=== PATIENT | male | born 1955 | race Caucasian/White ===

== ENCOUNTER 2018-12-17 08:34 | Emergency (ER) | payer SELFPAY ==
[~2018-12-17] VITALS: Ht 175.3 cm; Wt 71.4 kg
[~2018-12-17 08:34] MED LIST: DICL100G37 TOP; GABA300C16 PO; HYDR-3720 PO
[2018-12-17 08:36] VITALS: BP 103/66; PULSE 106; RESP 20; Ht 175.3 cm; Wt 71.4 kg
--- NOTE | 2018-12-17 09:20 | ERD ---
ER Documentation Chief Complaint Chief Complaint right arm and shoulder pain, bilateral leg pain and sore throat x 2 months HPI Patient is a 63 years old male w/ PMHx of DM II presenting to the ED for right shoulder pain w/ tingling sensation x 1 month. Patient reports similar symptoms on bilateral lower extremity with associated numbness and tingling. Patient denies taking any OTC medication. Patient admits to taking Metformin. Patient reports seeing his PCP 6 years ago. Denies trauma. Patient denies throat pain stating that his symptoms of tingling sensation are generally through out his body. ROS All systems reviewed and are negative except as per history of present illness. Medications Home Meds Active Scripts Diclofenac Sodium* (Voltaren* Gel) 1% -100 Gm Gel, 2 GM TOP QID, #1 TUB Prov:ELVIE BARDALES PA-C 12/17/18 Gabapentin* (Gabapentin*) 300 Mg Capsule, 300 MG PO BID, #60 CAP Prov:ELVIE BARDALES PA-C 12/17/18 Hydrocodone Bit-Acetaminophen* (Mullens*) 7.5-325 Tablet, 1 TAB PO Q4H PRN for PAIN, #20 TAB Prov:RUBI BOLANOS DO 12/23/15 Allergies Allergies: Coded Allergies: No Known Allergy (Unverified , 12/17/18) PMhx/Soc Medical and Surgical Hx: pt denies Surgical Hx History of Surgery: No Anesthesia Reaction: No Hx Neurological Disorder: No Hx Respiratory Disorders: No Hx Cardiac Disorders: No Hx Psychiatric Problems: No Hx Miscellaneous Medical Probl: No Hx Alcohol Use: No Hx Substance Use: No Hx Tobacco Use: Yes Smoking Status: Current every day smoker FmHx Family History: No diabetes, No coronary disease, No other Physical Exam Vitals Vital Signs Date Temp Pulse Resp B/P (MAP) Pulse Ox O2 O2 Flow FiO2 Time Delivery Rate 12/17/18 97.6 106 20 103/66 99 08:36 (78) Physical Exam Const: No acute distress Head: Atraumatic ENT: Normal External Ears, Nose and Mouth. Normal TM bilaterally. Neck: Full range of motion. No meningismus. Resp: Clear to auscultation bilaterally Cardio: Regular rate and rhythm, no murmurs Abd: Soft, non tender, non distended. Normal bowel sounds Neur: Awake and alert. Sensation intact on bilateral lower and upper extremity. Psych: Normal Mood and Affect MSK: Limited range on motion of right shoulder due to pain. No tenderness to palpation of right shoulder/arm without any signs of laceration, deformity, ecchymoses. Result Diagram: 12/17/1892612/17/18926 Results 24 hrs Laboratory Tests Test 12/17/18 09:27 12/17/18 09:28 12/17/18 10:59 12/17/18 11:21 White Blood Count 8.0 10^3/ul Red Blood Count 4.65 10^6/ul Hemoglobin 14.1 g/dl Hematocrit 41.4 % Mean Corpuscular 89.0 fl Volume Mean Corpuscular 30.3 pg Hemoglobin Mean Corpuscular 34.1 g/dl Hemoglobin Concen t Red Cell 12.0 % Distribution Width Platelet Count 204 10^3/UL Mean Platelet 9.7 fl Volume Immature 0.500 % Granulocytes % Neutrophils % 75.5 % Lymphocytes % 16.3 % Monocytes % 6.3 % Eosinophils % 1.0 % Basophils % 0.4 % Nucleated Red 0.0 /100WBC Blood Cells % Immature 0.040 10^3/ul Granulocytes # Neutrophils # 6.1 10^3/ul Lymphocytes # 1.3 10^3/ul Monocytes # 0.5 10^3/ul Eosinophils # 0.1 10^3/ul Basophils # 0.0 10^3/ul Nucleated Red 0.0 10^3/ul Blood Cells # Sodium Level 138 mmol/L Potassium Level 4.6 mmol/L Chloride Level 101 mmol/L Carbon Dioxide 25 mmol/L Level Anion Gap 12 Blood Urea 20 mg/dl Nitrogen Creatinine 0.70 mg/dl Est Glomerular > 60 mL/min Filtrat Rate mL/min Glucose Level 422 mg/dl Calcium Level 8.8 mg/dl Total Bilirubin 0.9 mg/dl Direct Bilirubin 0.00 mg/dl Indirect 0.9 mg/dl Bilirubin Aspartate Amino 24 IU/L Transf (AST/SGOT) Alanine 28 IU/L Aminotransferase (ALT/SGPT) Alkaline 110 IU/L Phosphatase Total Protein 7.5 g/dl Albumin 4.2 g/dl Globulin 3.30 g/dl Albumin/Globulin 1.27 Ratio Bedside Glucose 379 mg/dL 299 mg/dL Urine Color YELLOW Urine Clarity CLEAR Urine pH 7.0 Urine Specific 1.025 [place] Urine Ketones NEGATIVE mg/dL Urine Nitrite NEGATIVE mg/dL Urine Bilirubin NEGATIVE mg/dL Urine NEGATIVE mg/dL Urobilinogen Urine Leukocyte NEGATIVE Ruby/ul Esterase Urine Hemoglobin NEGATIVE mg/dL Urine Glucose 3+ mg/dL Urine Total NEGATIVE mg/dl Protein Current Medications Medications Dose Sig/Americo Start Time Status Last (Trade) Ordered Route PRN Stop Time Admin Dose Reason Admin Gabapentin 600 mg ONCE ONCE 12/17/18 DC 12/17/18 (Neurontin) PO 09:30 09:36 12/17/18 09:31 Sodium 1,000 ml @ Q1H ONCE 12/17/18 DC 12/17/18 Chloride 1,000 mls/hr IV 10:00 10:01 12/17/18 10:59 Insulin 10 unit ONCE STAT 12/17/18 DC 12/17/18 Human SC 09:48 10:00 Lispro 12/17/18 09:51 (Humalog) Sodium 1,000 ml @ Q1H ONCE 12/17/18 DC 12/17/18 Chloride 1,000 mls/hr IV 11:30 11:28 12/17/18 12:29 Procedures/MDM Patient was seen evaluated for right shoulder pain and paraesthesia. POC glucose reading of 379. CBC, CMP, urinalysis revealed 3+urine glucose and elevated glucose reading of 422, otherwise unremarkable. 1 L NS IV fluid with lispro 10 mg and gabapentin 600 mg p.o. administered in ED. repeat POC glucose post IV fluids and lispro revealed 299 from 379. Patient was then given another 1L NS IV fluids with repeat POC glucose that revealed 185. Patient is currently experiencing hyperglycemia without complications. Low rebeka picion for HHS/DKA due to no signs of end organ damage/failure. Right shoulder X-ray (as per patent's request) revealed: No evidence of acute fracture or dislocation. Mild to moderate degenerative changes, as above. Patient is stable and ready for discharge. Patient will be discharged with gabapentin and diclofenac gel for joint disease. Patient was advised to follow- up with PCP or [facility] for further evaluation for diabetes control and arthritis. Patient was also advised to be evaluated by sap director. Departure Diagnosis: Primary Impression: Hyperglycemia due to type 2 diabetes mellitus Diabetes mellitus fdc insulin use: with termite exterminator helper use Qualified Co martin: E11.65 - Type 2 diabetes mellitus with hyperglycemia; Z79.4 - alf (current) use of insulin Condition: Stable Patient Instructions: Hyperglycemia (High Blood Sugar) Referrals: [facility] Additional Instructions: Paciente aconseja volver a Departamento de urgencias inmediatamente para sntomas nuevos o que empeoran . Paciente aconseja posteriores con el PCP en 2-3 haider . Paciente verbaliza la comprehensin y est de acuerdo con el tratamiento y el curso de accin. Si el paciente no tiene ninguna de atencin primaria pueden seguir con [facility] [id number] [place] [address] o [facility] + [address] [address] ELVIE BARDALES PA-C Dec 17, 2018 09:19
[2018-12-17] MEDS ORDERED: GABAPENTIN 300 MG CAP PO ONE (09:30)
[2018-12-17] MEDS ORDERED: INSULIN LISPRO 100 UNIT/ML VIAL SC STA (09:48)
[2018-12-17] MEDS ORDERED: SOD CHLORIDE 0.9% 1,000 ML IV ONE ×2 (10:00→11:30)
== END 2018-12-17 12:55 | disposition home or self-care (01) ==
LOC: FTE 08:34
DX: E11.65 Type 2 diabetes mellitus with hyperglycemia (principal); F17.210 Nicotine dependence, cigarettes, uncomplicated; Z79.4 Long term (current) use of insulin
CPT/HCPCS: 36415; 73030; 80053; 81003; 82962; 85025; 96360; 96372; 99284; J1815; J7030